=== PATIENT | female | born 1990 | race Caucasian/White ===

== ENCOUNTER 2017-10-19 11:16 | Emergency (ER) | payer OTHER ==
[~2017-10-19] VITALS: Ht 172.7 cm; Wt 64.8 kg
[~2017-10-19 11:16] MED LIST: INDERAL PO
[2017-10-19 12:37] LABS: BASOPHIL (%) 0.2 % (0-1); EOSINOPHIL (%) 0.7 % (0-5); EOSINOPHIL COUNT 0.1 K/uL (0-0.3); HEMATOCRIT 37.5 % (36.0-46.0); HEMOGLOBIN 13.1 G/DL (11.9-15.5); IMMATURE GRANULOCYTE (%) 0.4 % (0.0-0.7); LYMPHOCYTE (%) 23.7 % (15-42); LYMPHOCYTE COUNT 1.9 K/uL (1.0-2.8); MCH 29.4 PG (29.0-34.0); MCHC 34.9 G/DL (30.0-36.0); MCV 84.3 FL (83-99); MONOCYTE (%) 13.9 % (3-12); MONOCYTE COUNT 1.1 K/uL (0-0.8); NEUTROPHIL (%) 61.1 % (45-76); NEUTROPHIL COUNT 4.9 K/uL (1.8-6.4); PLATELET COUNT 187 K/uL (156-360); RBC DIS.WIDTH-CV 11.9 % (11.8-14.6); RBC DIS.WIDTH-SD 36.1 % (39-53); RED BLOOD COUNT 4.45 M/uL (3.80-5.20)
[2017-10-19 12:47] LABS: APPEARANCE SL.HAZY ((CLEAR)); BILIRUBIN NEGATIVE; BLOOD NEGATIVE; COLOR YELLOW ((YELLOW)); GLUCOSE (STRIP) NEGATIVE; KETONES NEGATIVE; LEUKOCYTES MODERATE; NITRITE NEGATIVE; PROTEIN (STRIP) 30; SPECIFIC GRAVITY 1.021 (1.000-1.030); UROBILINOGEN 0.2 MG/DL (0.2-1.0)
[2017-10-19 12:48] LABS: ALBUMIN 4.3 g/dL (3.2-4.8)
[2017-10-19 12:49] LABS: CHLORIDE 105 mEq/L (99-109); POTASSIUM 4.2 mEq/L (3.7-5.4); SODIUM 139 mEq/L (136-147)
[2017-10-19 12:51] LABS: GLUCOSE 83 mg/dL (70-99)
[2017-10-19 12:53] LABS: TOTAL BILIRUBIN 0.5 mg/dL (0.0-1.0)
[2017-10-19 12:54] LABS: ALKALINE PHOSPHATASE 60 IU/L (3-129)
[2017-10-19 12:55] LABS: CREATININE 0.8 mg/dL (0.6-1.3); GFR ESTIMATE (CALCULATED) > 59 mL/min/
[2017-10-19 12:56] LABS: AST (GOT) 28 IU/L (2-34); UREA NITROGEN (BUN) 12 mg/dL (9-23)
[2017-10-19 12:57] LABS: BACTERIA RARE /HPF; EPITHELIAL CELLS 2+ /HPF; MUCUS 1+ /LPF
[2017-10-19 12:57] LABS: ALT (GPT) 32 IU/L (3-49)
[2017-10-19 13:04] LABS: QUANTITATIVE HCG < 4.0 MIU/ML
[2017-10-19] MEDS ORDERED: MOTRIN600 MG PO (13:06)
[2017-10-19] MEDS ORDERED: KEFLEX500 MG PO (13:06)
[2017-10-19 13:16] VITALS: BP 109/84
[2017-10-19 13:27] LABS: ERTH.SED.RATE 11 MM/HR (0-20)
[2017-10-19 14:05] LABS: C-REACTIVE PROTEIN 44.3 MG/L (0-10)
[2017-10-19 14:44] LABS: LYME DISEASE SEROLOGY SCREEN NEGATIVE (NEGATIVE)
[2017-10-20 16:53] LABS: Rickettsia (RMSF) IgG Not Detected (Not Detected); Rickettsia (RMSF) IgM Not Detected (Not Detected)
== END 2017-10-19 13:17 | disposition home or self-care (01) ==
LOC: EME 11:16
PROVIDERS: Nurse Practitioner Family
DX: N39.0 Urinary tract infection, site not specified (principal); M79.1 Myalgia; M25.50 Pain in unspecified joint; M54.2 Cervicalgia; R51 Headache
CPT/HCPCS: 80053; 81003; 84702; 85025; 85651; 86140; 86618; 86757 90; 99281; 99284